=== PATIENT | female | born 1965 | race Caucasian/White ===

== ENCOUNTER 2017-04-16 10:44 | Emergency (ER) | payer OTHER ==
[2017-04-16 11:26] VITALS: BP 139/77
--- NOTE | 2017-04-16 11:47 | UC ---
Abdominal Pain Female HPI - HPI Summary HPI Summary: abdomen pain and diarrhea 2 days after not having suboxone. Patient also was exposed to stomach virus - History of Current Complaint Chief Complaint: UCRespiratory Stated Complaint: ABDOMINAL COMPLAINT Time Seen by Provider: 04/16/17 11:42 Hx Obtained From: Patient ?: No Onset/Duration: Sudden Onset, Lasting Days - 3, Still Present Timing: Constant Severity Initially: Moderate Severity Currently: Moderate Location: Diffuse Radiates: No Character: Cramping Aggravating Factor(s): Nothing Alleviating Factor(s): Nothing Associated Signs and Symptoms: Positive: Nausea, Vomiting, Diarrhea Allergies/Adverse Reactions: Allergies Allergy/AdvReac Type Severity Reaction Status Date / Time No Known Allergies Allergy Verified 04/16/17 11:20 Home Medications: Home Medications Buprenorphine HCl-Naloxone HCl [Suboxone 8-2 mg] 04/16/17 [History] cloNIDine TAB* [Catapres 0.1 MG TAB*] 04/16/17 [History] PMH/Surg Hx/FS Hx/Imm Hx Previously Healthy: No Psychological History: Anxiety, Other Other Psychological History: Opiate abuse disorder in remission Other History Of: Negative For: Anticoagulant Therapy - Surgical History Surgical History: Yes Surgery Procedure, Year, and Place: APPENDECTOMY - Family History Known Family History: Positive: None - Social History Occupation: Unemployed Lives: With Family Alcohol Use: Occasionally Substance Use Comment - Amount & Last Used: recovery Smoking Status (MU): Heavy Every Day Tobacco Smoker Amount Used/How Often: 1/2 PPD Have You Smoked in the Last Year: Yes Review of Systems Constitutional: Negative Skin: Negative Eyes: Negative ENT: Negative Respiratory: Negative Cardiovascular: Negative Gastrointestinal: Abdominal Pain, Vomiting, Diarrhea, Nausea Genitourinary: Negative Motor: Negative Neurovascular: Negative Musculoskeletal: Negative Neurological: Negative Psychological: Negative Is Patient Immunocompromised?: No All Other Systems Reviewed And Are Negative: Yes Physical Exam Triage Information Reviewed: Yes Appearance: Well-Appearing, No Pain Distress, Well-Nourished Vital Signs: Initial Vital Signs Temp 98.1 F 04/16/17 11:22 Pulse 72 04/16/17 11:22 Resp 16 04/16/17 11:22 BP 139/77 04/16/17 11:22 Pulse Ox 100 04/16/17 11:22 Vital Signs Reviewed: Yes Eye Exam: Normal Eyes: Positive: Conjunctiva Clear ENT Exam: Normal ENT: Positive: Normal ENT inspection, Hearing grossly normal, Pharynx normal, TMs normal. Negative: Nasal congestion, Nasal drainage, Tonsillar swelling, Trismus, Muffled voice, Hoarse voice, Dental tenderness, Sinus tenderness Dental Exam: Normal Neck exam: Normal Neck: Positive: Supple, Nontender, No Lymphadenopathy Respiratory Exam: Normal Respiratory: Positive: Chest non-tender, Lungs clear, Normal breath sounds, No respiratory distress, No accessory muscle use Cardiovascular Exam: Normal Cardiovascular: Positive: RRR, No Murmur, Pulses Normal, Brisk Capillary Refill Abdominal Exam: Normal Abdomen Description: Positive: No Organomegaly, Soft, Other: - Diffuse discomfort. Negative: CVA Tenderness (R), CVA Tenderness (L) Bowel Sounds: Positive: Present Musculoskeletal Exam: Normal Musculoskeletal: Positive: Strength Intact, ROM Intact, No Edema Neurological Exam: Normal Neurological: Positive: Alert, Muscle Tone Normal Psychological Exam: Normal Skin Exam: Normal Re-Evaluation - Re-Evaluation First Eval Change: Improved - Nausea resolved with Zofran taking po well Abd Pain Female Course/Dx - Course Course Of Treatment: advance diet slowly, restart suboxone tomorrow zofran prn nausea follow with pcp prn - Differential Dx/Diagnosis Provider Diagnoses: Acute nausea/vomiting/diarrhea acute opiate wd nicotine dependent Discharge - Discharge Plan Condition: Stable Disposition: HOME Prescriptions: Ondansetron ODT TAB* [Zofran 4 MG Odt TAB*] 4 mg PO Q6H PRN #4 tab.odt PRN Reason: Nausea/Vomiting Patient Education Materials: Acute Nausea and Vomiting (ED), Acute Diarrhea (ED ), Nutrition Tips for Relief of Diarrhea (ED) Referrals: No Primary Care Phys,NOPCP [Primary Care Provider] -
[2017-04-16] MEDS ORDERED: Ondansetron ODT TAB* 4 MG PO ONE (11:53)
== END 2017-04-16 12:38 | disposition home or self-care (01) ==
LOC: UCEAST 10:44
DX: F11.23 Opioid dependence with withdrawal (principal); R11.2 Nausea with vomiting, unspecified; R19.7 Diarrhea, unspecified; T40.2X5A Adverse effect of other opioids, initial encounter; F17.200 Nicotine dependence, unspecified, uncomplicated
CPT/HCPCS: 81003; 87502; 99212; A9270-GY; G0463

== ENCOUNTER 2017-05-24 08:18 | Emergency (ER) | payer OTHER ==
[2017-05-24] MEDS ORDERED: NS 0.9% 1000 ML* 1,000 ML IV ONE (08:33)
[2017-05-24] MEDS ORDERED: Aspirin Low Dose CHEW TAB* 81 MG PO ONE (08:33)
[2017-05-24] MEDS ORDERED: cloNIDine TAB* 0.1 MG PO ONE ×2 (08:36→14:09)
[2017-05-24 08:56] LABS: ABS Basophils 0.1 10^3/ul (0-0.2); ABS Eosinophils 0 10^3/ul (0-0.6); ABS Lymphocytes 2.3 10^3/ul (1.0-4.8); ABS Monocytes 0.5 10^3/ul (0-0.8); ABS Neutrophils 8.1 10^3/ul (1.5-7.7); ABS Nucleated RBC 0 10^3/ul; Eosinophil % 0.3 % (0-6); Hematocrit 42 % (35-47); Lymphocyte % 21.2 % (25-47); Mean Corpuscular HGB Conc 35 g/dl (31-36); Mean Corpuscular Hemoglobin 31 pg (27-31); Mean Corpuscular Volume 88 fL (80-97); Mean Platelet Volume 9 um3 (7.4-10.4); Nucleated Red Blood Cells % 0.1; Platelet Count 261 10^3/ul (150-450); Red Blood Count 4.82 10^6/ul (4.0-5.4); Red Cell Distribution Width 13 % (10.5-15); White Blood Count 11.1 10^3/ul (3.5-10.8)
--- NOTE | 2017-05-24 08:56 | RAD ---
HISTORY: Tachycardia COMPARISONS: September 12, 2015 VIEWS: 1: frontal portable view of the chest at 8:40 AM FINDINGS: LINES AND TUBES: None. CARDIOMEDIASTINAL SILHOUETTE: The cardiomediastinal silhouette is normal for portable technique. PLEURA: The costophrenic angles are sharp. No pleural abnormalities are noted. LUNG PARENCHYMA: The lungs are clear. ABDOMEN: The upper abdomen is clear. There is no subphrenic gas. BONES AND SOFT TISSUES: No bone or soft tissue abnormalities are noted. IMPRESSION: NO ACTIVE CARDIOPULMONARY DISEASE.
[2017-05-24 09:06] LABS: INR 0.94 (0.77-1.02)
[2017-05-24 09:17] LABS: EGFR Non-African American 114.1 (>60)
[2017-05-24] MEDS ORDERED: LORazepam TAB(*) 1 MG PO ONE (09:34)
[2017-05-24] MEDS ORDERED: NS 0.9% 1000 ML* 1,000 ML BOLUS SCH (09:45)
[2017-05-24 10:11] LABS: Urine Appearance Clear; Urine Blood Negative (Negative); Urine Color Yellow; Urine Ketones Negative (Negative); Urine Protein Negative (Negative); Urine Specific Gravity 1.008 (1.010-1.030); Urine Urobilinogen Negative (Negative)
[2017-05-24] MEDS ORDERED: Magnesium Oxide TAB* 400 MG PO ONE (13:45)
[2017-05-24 13:57] VITALS: BP 142/91
--- NOTE | 2017-05-25 20:30 | ED ---
[facility] Natalie, scribed for Essence Stevens MD on 05/24/17 at 0917 . HPI Chest Pain - HPI Summary HPI Summary: The patient is a 52 y/o F BIBA to ED c/o high blood pressure chest pain, and anxiety. The patient states that she is very anxious, and her chest pain is tight with occasional sharp pains in her mid-sternal region. The pain is rated 2 /10. She is also nauseous. She normally takes Clonidine, but she has not taken it in two days because she was in [facility] and was released without filled prescription. She was in treatment for cocaine use, but she had an episode of relapse three days ago. She also takes Suboxone. She has no hx of [place]. She drank alcohol yesterday. - History of Current Complaint Chief Complaint: EDDysrhythmPalp Time Seen by Provider: 05/24/17 08:33 Hx Obtained From: Patient Onset/Duration: Started Days Ago - two days ago, Still Present Initial Severity: Moderate Current Severity: Moderate Pain Intensity: 2 Pain Scale Used: 0-10 Numeric Chest Pain Location: Mid Sternal Chest Pain Radiates: No Character: Sharp/Stabbing Aggravating Factor(s): Nothing Alleviating Factor(s): Nothing Associated Signs and Symptoms: Positive: Chest Pain, Anxiety, Nausea, Other: - cocaine use - Allergy/Home Medications Allergies/Adverse Reactions: Allergies Allergy/AdvReac Type Severity Reaction Status Date / Time No Known Allergies Allergy Verified 04/16/17 11:20 PMH/Surg Hx/FS Hx/Imm Hx Previously Healthy: No Endocrine/Hematology History: Denies: Hx Anticoagulant Therapy, Hx Diabetes, Hx Systemic Lupus Erythematosus Cardiovascular History: Denies: Hx Congestive Heart Failure, Hx Hypertension Respiratory History: Reports: Hx Asthma History: Denies: Hx Renal Disease Musculoskeletal History: Denies: Hx Rheumatoid Arthritis Psychiatric History: Reports: Hx Substance Abuse - Cancer History Hx Chemotherapy: No - Surgical History Surgery Procedure, Year, and Place: APPENDECTOMY Infectious Disease History: No Infectious Disease History: Denies: History Other Infectious Disease, Traveled Outside the [place] in Last 30 Days - Family History Known Family History: Positive: None - Social History Alcohol Use: Occasionally Substance Use Type: Reports: None Substance Use Comment - Amount & Last Used: recovery Smoking Status (MU): Heavy Every Day Tobacco Smoker Amount Used/How Often: 1/2 PPD Have You Smoked in the Last Year: Yes Review of Systems Positive: Chest Pain Positive: Nausea Positive: Anxious All Other Systems Reviewed And Are Negative: Yes Physical Exam Triage Information Reviewed: Yes Vital Signs On Initial Exam: Initial Vitals Temp Pulse Resp BP Pulse Ox 98.4 F 71 26 164/89 99 05/24/17 08:22 05/24/17 08:22 05/24/17 08:22 05/24/17 08:22 05/24/17 08:22 Vital Signs Reviewed: Yes Appearance: Positive: Well-Appearing, No Pain Distress, Well-Nourished Skin: Positive: Warm, Skin Color Reflects Adequate Perfusion Head/Face: Positive: Normal Head/Face Inspection Eyes: Positive: Conjunctiva Clear ENT: Positive: Normal ENT inspection Neck: Positive: Supple Respiratory/Lung Sounds: Positive: Other - lungs clear, normal breath sounds, no respiratory distress Cardiovascular: Positive: Other - RRR, no murmur, pulses normal, brisk capillary refill Abdomen Description: Positive: Nontender, Soft Bowel Sounds: Positive: Present Musculoskeletal: Positive: Strength/ROM Intact Neurological: Positive: Other - Alert, msucle tone normal, facial symmetry, speech normal, sensory/motor intact Psychiatric: Positive: Normal Diagnostics - Vital Signs Vital Signs Temp Pulse Resp BP Pulse Ox 05/24/17 08:47 75 17 100 05/24/17 08:22 98.4 F 71 26 164/89 99 - Laboratory Lab Results: Lab Results 05/24/17 Range/Units 08:50 WBC 11.1 H (3.5-10.8) 10^3/ul RBC 4.82 (4.0-5.4) 10^6/ul Hgb 15.0 (12.0-16.0) g/dl Hct 42 (35-47) % MCV 88 (80-97) fL MCH 31 (27-31) pg MCHC 35 (31-36) g/dl RDW 13 (10.5-15) % Plt Count 261 (150-450) 10^3/ul MPV 9 (7.4-10.4) um3 Neut % (Auto) 73.3 (38-83) % Lymph % (Auto) 21.2 L (25-47) % Preble % (Auto) 4.4 (1-9) % Eos % (Auto) 0.3 (0-6) % Baso % (Auto) 0.8 (0-2) % Absolute Neuts (auto) 8.1 H (1.5-7.7) 10^3/ul Absolute Lymphs (auto) 2.3 (1.0-4.8) 10^3/ul Absolute Monos (auto) 0.5 (0-0.8) 10^3/ul Absolute Eos (auto) 0 (0-0.6) 10^3/ul Absolute Basos (auto) 0.1 (0-0.2) 10^3/ul Absolute Nucleated RBC 0 10^3/ul Nucleated RBC % 0.1 Result Diagrams: 05/24/17 08:50 05/24/17 08:50 Lab Statement: Any lab studies that have been ordered have been reviewed, and results considered in the medical decision making process. - Radiology CXR Xray Interpretation: No Acute Changes Radiology Interpretation Completed By: Radiologist - No active cardiopulmonary disease. ED physician has reviewed this report. - EKG 08:20 Cardiac Rate: NL EKG Rhythm: Sinus Rhythm ST Segment: Non-Specific Ectopy: None EKG Interpretation: Nml AVIVCT. Nml QTc. Nml axis. EKG Comparison: No Significant Change - compared to EKG on 03/07/16 Re-Evaluation - Re-Evaluation First Eval Re-Evaluation Time: 14:02 - I spoke to the patient to update patient on diagnosis and disposition. Change: Improved Chest Pain Course/Dx - Course Course Of Treatment: Pt medications reviewed this visit. High blood pressure noted. Nursing gives report that the patient is remaining agitated. BP is146/ 70. HR is 60-70 BPM. In the medical workup, both troponins are negative, positive for cannabinoids cocaine, and sodium is low at 125. The patient has been treated for low Na with 1L normal saline, and will receive another 1L normal saline. She was also given Ativan PO. The patients agitation has been improved with Clonidine. There is no reoccurrence of atrial fibrillation in the ED. Pt just reports anxiety. The patient is diagnosed with substance abuse, palpitations, and hypomagnesemia. - Diagnoses Provider Diagnoses: Substance abuse, Hypomagnesemia, Palpitations Discharge - Discharge Plan Condition: Stable Disposition: HOME Prescriptions: cloNIDine TAB* [Catapres 0.1 MG TAB*] 0.1 mg PO DAILY #10 tab Patient Education Materials: Heart Palpitations (ED), Polysubstance Abuse (ED) , Hypomagnesemia (ED) Referrals: Elvis Traore MD [Medical Doctor] - 2 Days No Primary Care Phys,NOPCP [Primary Care Provider] - 2 Days Additional Instructions: You were given clonidine 0.1mg orally once in the ER, and also ativan. We did not document a rapid heart rhythm in the ER. You serum magnesium level was slightly low. We gave you oral replacement for the magnesium. We have prescribed 10 days of clonidine for you because this medicine should not be stopped abruptly. You must get to your provider to get a new prescription for this. Stop using cocaine. Return to the ER if you have new or worsening symptoms. The documentation as recorded by the [facility] Natalie accurately reflects the service I personally performed and the decisions made by me, Essence Stevens MD.
== END 2017-05-24 13:57 | disposition home or self-care (01) ==
LOC: ED 08:18
DX: F14.10 Cocaine abuse, uncomplicated (principal); E83.42 Hypomagnesemia; R00.2 Palpitations; F17.200 Nicotine dependence, unspecified, uncomplicated
CPT/HCPCS: 36415; 71045; 80053; 80307; 80320; 81003; 81015; 82550; 82553; 83605; 83735; 83880; 84436; 84443; 84484; 85025; 85379; 85610; 85730; 87086; 93005; 96360; 96361; 99283; A9270-GY; G0480

== ENCOUNTER 2018-04-07 12:07 | Emergency (ER) | payer OTHER ==
[2018-04-07 12:27] VITALS: BP 123/72
--- NOTE | 2018-04-07 13:15 | UC ---
Throat Pain/Nasal Marcelino HPI - HPI Summary HPI Summary: 3 days of sore throat and pain with swallowing. Onset of bilateral ear pain today. Temperature 101 this morning. Patient took Tylenol about 4 hours ago. Also complains of stuffy nose, cough and wheeze. Is a smoker. - History of Current Complaint Chief Complaint: UCGeneralIllness Stated Complaint: SORE THROAT,RUNNY NOSE Time Seen by Provider: 04/07/18 12:38 Hx Obtained From: Patient Onset/Duration: Gradual Onset, Lasting Days, Still Present Severity: Moderate Pain Intensity: 7 Pain Scale Used: 0-10 Numeric Cough: Nonproductive Associated Signs & Symptoms: Positive: Fever - Allergies/Home Medications Allergies/Adverse Reactions: Allergies Allergy/AdvReac Type Severity Reaction Status Date / Time No Known Allergies Allergy Verified 04/07/18 12:19 Home Medications: Home Medications Acetaminophen [Acetaminophen Extra Strength] 1,000 mg PO ONCE 04/07/18 [History Confirmed 04/07/18] Buprenorp/Nalox 8-2 MG SL TAB [Suboxone 8-2 mg SL TAB*] 1 tab SL DAILY 04/07/18 [History Confirmed 04/07/18] Mirtazapine TAB* [Remeron TAB*] 15 mg PO BEDTIME 04/07/18 [History Confirmed 04/25] PMH/Surg Hx/FS Hx/Imm Hx Previously Healthy: Yes Other History Of: Negative For: Anticoagulant Therapy - Surgical History Surgical History: Yes Surgery Procedure, Year, and Place: APPENDECTOMY - Family History Known Family History: Positive: Hypertension - Social History Alcohol Use: None Substance Use Type: None Substance Use Comment - Amount & Last Used: recovery Smoking Status (MU): Heavy Every Day Tobacco Smoker Amount Used/How Often: 3-4 cig/ day Have You Smoked in the Last Year: Yes Review of Systems All Other Systems Reviewed And Are Negative: Yes Constitutional: Positive: Fever, Fatigue ENT: Positive: Sore Throat, Ear Ache, Nasal Discharge Respiratory: Positive: Cough Cardiovascular: Positive: Negative Gastrointestinal: Positive: Negative Physical Exam Triage Information Reviewed: Yes Appearance: No Pain Distress, Well-Nourished, Ill-Appearing - MILD Vital Signs: Initial Vital Signs Temp 97.8 F 04/07/18 12:21 Pulse 70 04/07/18 12:21 Resp 20 04/07/18 12:21 BP 123/72 04/07/18 12:21 Pulse Ox 96 04/07/18 12:21 Laboratory Tests 04/07/18 12:31 Group A Strep Rapid Positive A Vital Signs Reviewed: Yes Eyes: Positive: Conjunctiva Clear ENT: Positive: Hearing grossly normal, Pharyngeal erythema, TMs normal, Tonsillar swelling. Negative: Tonsillar exudate Neck: Positive: Supple, Nontender, No Lymphadenopathy Respiratory: Positive: No respiratory distress, No accessory muscle use, Decreased breath sounds, Wheezing - DIFFUSE Cardiovascular Exam: Normal Abdomen Description: Positive: Soft Musculoskeletal: Positive: No Edema Neurological: Positive: Alert Psychological: Positive: Age Appropriate Behavior Skin: Negative: Rashes Throat Pain/Nasal Course/Dx - Differential Dx/Diagnosis Provider Diagnosis: Strep pharyngitis, Acute bronchitis Discharge - Sign-Out/Discharge Documenting (check all that apply): Patient Departure All imaging exams completed and their final reports reviewed: No Studies - Discharge Plan Condition: Stable Disposition: HOME Prescriptions: Albuterol HFA INHALER* [Ventolin HFA Inhaler*] 2 puff INH Q4H PRN #1 mdi PRN Reason: Shortness Of Breath Amoxicillin PO (*) [Amoxicillin 500 MG CAP*] 1,000 mg PO Q12H #40 cap Benzonatate CAP* [Tessalon CAP*] 1 - 2 cap PO TID PRN #30 cap PRN Reason: Cough predniSONE TAB* [Deltasone TAB*] 50 mg PO DAILY #5 tab Patient Education Materials: Strep Throat (ED), Acute Bronchitis (ED) Forms: *Gen. Provider Communication Referrals: [facility] [Outside] - If Needed Additional Instructions: STREP POSITIVE. TAKE ANTIBIOTICS FOR THE FULL 10 DAYS. OTC CHLORASEPTIC OR CEPACOL LOZENGES AND/OR IBUPROFEN FOR SORE THROAT NEEDED ONCE SYMPTOMS RESOLVED - NEW TOOTHBRUSH DO NOT SHARE FOOD, DRINK, UTENSILS QUIT SMOKING!!! CALL THE NUMBER BELOW FOR ASSISTANCE IN ESTABLISHING WITH A PCP An additional resource available to assist in finding the appropriate physician for your health care needs is the [facility] ([facility]). You may contact them by calling [phone]. - Billing Disposition and Condition Condition: STABLE Disposition: Home
== END 2018-04-07 13:15 | disposition home or self-care (01) ==
LOC: UCEAST 12:07
DX: J02.0 Streptococcal pharyngitis (principal); J20.9 Acute bronchitis, unspecified; H92.03 Otalgia, bilateral; F17.210 Nicotine dependence, cigarettes, uncomplicated
CPT/HCPCS: 87651; 99212; G0463